=== PATIENT | female | born 1945 | race Native Hawaiian/Other Pacific Islander ===

== ENCOUNTER 2020-07-07 12:29 | Day surgery (SDC) | payer OTHER ==
[~2020-07-07] VITALS: Ht 157.5 cm; Wt 73.0 kg
[~2020-07-07 12:29] MED LIST: BISA5TAB12 PO; CALC-462 PO; CARV3.1231 PO; DIGO125T72 PO; FURO20TA4 PO; PANT40TA54 PO; RIVA20TA PO; SIMV-43 PO; SODIUM CHLORIDE 0.9% 1,000 ML IV ONE; SODIUM CHLORIDE 0.9% 1,000 ML ONE
[2020-07-07] MEDS ORDERED: PROPOFOL 1% 20 ML VIAL IVP ONE (12:30)
[2020-07-07] MEDS ORDERED: LIDOCAINE/PF 2% 5 ML SYRINGE IVP ONE (12:30)
[2020-07-07 12:38] LABS: COVID AG,FIA SOURCE NASOPHARYNGEAL
== END 2020-07-07 15:15 | disposition home or self-care (01) ==
LOC: SURGERY 12:29
PROVIDERS: ATTEND Student in an Organized Health Care Education/Training Program
DX: D50.9 Iron deficiency anemia, unspecified (principal); K62.1 Rectal polyp; K63.5 Polyp of colon; K57.30 Diverticulosis of large intestine without perforation or abscess without bleeding; I48.91 Unspecified atrial fibrillation; I50.9 Heart failure, unspecified; K64.4 Residual hemorrhoidal skin tags; K64.8 Other hemorrhoids; E78.00 Pure hypercholesterolemia, unspecified; Z98.890 Other specified postprocedural states; Z79.899 Other long term (current) drug therapy
CPT/HCPCS: 45380; 87426; 88305; 93005; C1769; C9803; J2704; J3490; J7030